=== PATIENT | female | born 1995 | race Caucasian/White ===

== ENCOUNTER 2021-01-31 14:52 | Emergency (ER) | payer SELFPAY ==
[2021-01-31 15:06] VITALS: BP 121/77; PULSE 87; RESP 16; TEMP 37.7; O2SAT 100
--- NOTE | 2021-01-31 15:26 | ED.GENADULT ---
HPI - General Adult General Chief complaint: Dental/Oral Stated complaint: Toothache Source: patient Mode of arrival: ambulatory Limitations: no limitations History of Present Illness HPI narrative: Pt presents for evaluation of right sided dental pain since yesterday. She believes her symptoms are related to impacted wisdom teeth. Pain is constant, rated 7 out of 10 in severity, throbbing. She has associated right-sided otalgia and a right temporal headache. No fever, chills, nausea, vomiting, trismus, problems handling secretions. She tried taking ibuprofen with minimal improvement in her symptoms or after. LMP 01/20/2021. Not sexually active. No additional complaints or concerns. Related Data Home Medications Medication Instructions Recorded Confirmed No Home Medications 01/31/21 01/31/21 Allergies Allergy/AdvReac Type Severity Reaction Status Date / Time No Known Allergies Allergy Verified 01/31/21 15:28 Review of Systems Review of Systems: Narrative: CONSTITUTIONAL: Denies fever, chills, or sweats. EYES: Denies visual changes, redness, or discharge. ENT: Reports right-sided dental pain. Denies rhinorrhea, congestion, sore throat, or otalgia. CARDIOVASCULAR: Denies chest pain, palpitations, or edema. RESPIRATORY: Denies cough or dyspnea. GASTROINTESTINAL: Denies abdominal pain, nausea, vomiting, or diarrhea. GENITOURINARY: Denies dysuria or hematuria. SKIN: Denies rash or itching. MUSCULOSKELETAL: Denies back pain, joint pain, or myalgia. NEUROLOGIC: Denies headache, numbness, dizziness, or weakness. PSYCHIATRIC: Denies anxiety or depression. [facility] Past Medical History Medical History No pertinent past medical history Surgical History Surgical History No pertinent past surgical history Family History Family History Mother COPD (chronic obstructive pulmonary disease) Social History Social History Smoking status: Current every day smoker Additional smoking assessment comments: 4 cigarettes daily Alcohol intake: never Substance use: current Substance use type: marijuana Gender identity (if verbalized by the patient): Female Sexual Orientation (if Verbalized by the Patient): Straight or Heterosexual Spiritual care concerns: No Exam Narrative: Exam Narrative: GENERAL: Well-appearing, well-nourished, and in no acute distress. HEAD: Normocephalic, atraumatic. EYES: PERRLA and EOMI. ENT: Nares clear, no rhinorrhea or epistaxis. Mucous membranes moist. Oropharynx without tonsillar hypertrophy exudate or other lesions. Right upper and right lower wisdom teeth are both impacted. No visible or palpable abscess. Bilateral TMs pearly hamilton nonbulging NECK: Supple. No adenopathy or masses. No carotid bruits or JVD CHEST: Clear to auscultation. No respiratory distress. No wheezes rales or rhonchi HEART: Regular rate and rhythm. No murmur heard. Normal peripheral pulses. ABDOMEN: Soft, nontender, nondistended, normal active bowel sounds. EXTREMITIES: Normal range of motion. No edema. SKIN: Warm, dry, no rash. NEURO: No focal deficits. Alert and oriented x3. PSYCH: Normal mood and affect. Course Course Emergency Course: This is a 25-year-old female who presents with dental pain associated with impacted wisdom teeth. She was advised to call dentist tomorrow. We will discharge her with prescriptions for amoxicillin and Tylenol with codeine. She should follow-up outpatient for further evaluation and treatment and return for worsening symptoms. Patient in agreement with plan of care Vital Signs Vital signs: Vital Signs Temperature 37.7 C H 01/31/21 15:06 Pulse Rate 87 01/31/21 15:06 Respiratory Rate 16 01/31/21 15:06 Blood Pressure 121/77
== END 2021-01-31 15:42 | disposition home or self-care (01) ==
PROVIDERS: Emergency Provider Nurse Practitioner
DX: K01.1 Impacted teeth (principal); F17.210 Nicotine dependence, cigarettes, uncomplicated
CPT/HCPCS: 99213; G0463